=== PATIENT | female | born 1970 | race Caucasian/White ===

== ENCOUNTER 2022-03-05 18:44 | Emergency (ER) | payer BC ==
[2022-03-05] MEDS ORDERED: traMADol 50 MG Tab PO ONE (19:57)
[2022-03-05] MEDS ORDERED: Acetaminophen 500 MG Tab PO ONE (19:57)
[2022-03-05] MEDS ORDERED: Naproxen 500 MG Tab PO ONE (19:57)
== END 2022-03-05 20:10 | disposition home or self-care (01) ==
LOC: FB.ED 18:44
DX: S92.422A Displaced fracture of distal phalanx of left great toe, initial encounter for closed fracture (principal); Z88.0 Allergy status to penicillin; Z88.5 Allergy status to narcotic agent; X50.1XXA Overexertion from prolonged static or awkward postures, initial encounter
CPT/HCPCS: 73660; 99283; A9270; 99281